=== PATIENT | female | born 1995 | race Caucasian/White ===

== ENCOUNTER → 2017-01-15 | Outpatient (CLI) | payer BC | LOC: MC.RAD 09:55 | DX: N63.20 Unspecified lump in the left breast, unspecified quadrant (principal) ==

== ENCOUNTER → 2020-02-16 | Outpatient (CLI) | payer BC | LOC: MC.RAD 12:54 | DX: N63.20 Unspecified lump in the left breast, unspecified quadrant (principal) ==